=== PATIENT | male | born 1990 | race Caucasian/White ===

== ENCOUNTER → 2018-01-28 | Outpatient (CLI) | payer BC, OTHER ==
--- NOTE | 2018-01-28 09:12 | MRI ---
Study: MRI of the Right Knee. Indication: KNEE PAIN Technique: Multiplanar, multi sequence MRI of the right knee was obtained without intravenous contrast. Comparison: September 02, 2012. Findings: Mild interstitial fissuring mid to distal ACL graft which is slightly expanded with associated intrasubstance ganglion formation within the tibial tunnel. In addition, superficial to the tibial tunnel within the subcutaneous fat there is a multilobulated ganglion measuring up to 56 mm craniocaudal by 18 mm AP by 20 mm transverse. No recurrent full-thickness tear of the ACL graft. PCL and lateral collateral ligament complex intact. MCL is lax and bowed indicating sequela of a remote MCL sprain. No acute tear. Volume loss posterior horn/root and body medial meniscus likely postsurgical. A subtle concave defect noted along the undersurface of the peripheral red zone of the posterior horn and body, likely postsurgical as no fluid filled defect identified. Minimal grade 4 chondrosis and subchondral marrow change noted medial margin medial tibial plateau with additional subtle areas of grade 2 chondrosis throughout the medial compartment. Lateral meniscus intact. No high-grade chondral defect lateral compartment. 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 Post surgical changes of the patellar tendon without recurrent tear. Mild ossification within the distal patellar tendon indicating sequela of remote [place]-Schlatter's disease. Patella normally located. Patchy chondral signal change throughout the midline femoral trochlea without loss of chondral thickness. Tiny effusion. Mild thickening medial patellar plica. No acute fracture. Impression: ACL graft with mild interstitial fissuring of the mid to distal graft but without recurrent high-grade tear. There is however intrasubstance ganglion formation of the tibial tunnel with associated large extraosseous ganglion tracking superficial to the tibia within the subcutaneous fat. Prior partial medial meniscectomy with post surgical changes but without fluid filled recurrent tear. 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 Sequela of remote [place]-Schlatter's disease. Patchy chondral signal changes midline femoral trochlea. Tiny effusion. Mild thickening medial patellar plica. Electronically signed by: Ken Camacho MD 01/28/2018 9:10 AM CDT
== END ==
LOC: MRI 07:00
PROVIDERS: ATTEND General Practice
DX: M23.91 Unspecified internal derangement of right knee (principal); M92.41 Juvenile osteochondrosis of patella, right knee; M25.461 Effusion, right knee; Z98.890 Other specified postprocedural states